=== PATIENT | female | born 1960 | race Caucasian/White ===

== ENCOUNTER 2016-08-31 09:05 | Emergency (ER) | payer BC ==
[2016-08-31 09:27] VITALS: BP 155/69
[2016-08-31] MEDS ORDERED: BSS OPTH.SOL* BTL ONE (09:29)
[2016-08-31] MEDS ORDERED: Tetracaine 0.5% OPTH.SOL 4 ML* 1 DROP BTL ONE (09:29)
[2016-08-31] MEDS ORDERED: Fluorescein Sodium TOPICAL* 1 MG TEST ONE (09:29)
--- NOTE | 2016-08-31 09:52 | UC ---
Eye Complaint HPI - HPI Summary HPI Summary: left eye redness and irritation since 08/26/16. Does not wear contacts. [place] like something got in it. Works at a convenience store, sees alot of people. States she has also had a URI since 08/26/16, but states it seems to be getting better. Can see with her glasses. Has clear drainage. - History of Current Complaint Chief Complaint: UCEye Stated Complaint: EYE COMPLAINT Time Seen by Provider: 08/31/16 09:45 Hx Obtained From: Patient Hx Last Menstrual Period: 1 yr Onset/Duration: Gradual Onset, Lasting Days, Still Present Timing: Constant Severity Initially: Moderate Severity Currently: Moderate Pain Intensity: 3 Pain Scale Used: 0-10 Numeric Location of Injury: Conjunctiva, Eye Lid (upper) - swollen Character: Foreign Body Sensation Aggravating Factor(s): Light Alleviating Factor(s): Eye Drops - tried Visine and clear view Associated Signs And Symptoms: Positive: Photophobia, Drainage (Clear) Related History: Meds/Drops Used: - visine, clear view - Risk Factors Acute Glaucoma Risk Factors: Negative Optic Artery Occlusion Risk Factors: Negative - Allergies/Home Medications Allergies/Adverse Reactions: Allergies Allergy/AdvReac Type Severity Reaction Status Date / Time Sea air Allergy Congestion Uncoded 08/31/16 09:16 Home Medications: Home Medications Saxagliptin HCl [Onglyza] 5 mg PO DAILY 08/31/16 [History Confirmed 08/31/16] PMH/Surg Hx/FS Hx/Imm Hx Endocrine History Of: Reports: Diabetes Cardiovascular History Of: Reports: Cardiac Disorders - [place] 1993 angina, Hypertension - Surgical History Surgical History: Yes Surgery Procedure, Year, and Place: appy 1971; right elbow surgery-2002 - Family History Known Family History: Positive: Hypertension - Social History Occupation: Employed Full-time Alcohol Use: None Substance Use Type: None Smoking Status (MU): Former Smoker Household Exposure Type: Cigarettes Review of Systems Constitutional: Negative Eyes: Drainage, Eye Redness ENT: Nasal Discharge, Other - sinus pressure All Other Systems Reviewed And Are Negative: Yes Physical Exam Triage Information Reviewed: Yes Appearance: Well-Appearing, Pain Distress, Obese Vital Signs: Initial Vital Signs Temp 97.3 F 08/31/16 09:19 Pulse 52 08/31/16 09:19 Resp 14 08/31/16 09:19 BP 155/69 08/31/16 09:19 Pulse Ox 100 08/31/16 09:19 elevated BP and bradycardia noted Vital Signs Reviewed: Yes Eyes: Positive: Conjunctiva Inflamed, Discharge - clear, Other: - upper lid swollen, No FB when lid everted. No stye ENT: Positive: Pharynx normal, TMs normal. Negative: Muffled/hoarse voice Neck: Positive: Supple, Nontender Respiratory: Positive: Lungs clear, Normal breath sounds, No respiratory distress, No accessory muscle use Cardiovascular: Positive: RRR, No Murmur, Pulses Normal, Brisk Capillary Refill Musculoskeletal: Positive: Strength Intact, ROM Intact Neurological: Positive: Alert, Muscle Tone Normal Psychological Exam: Normal Skin Exam: Normal Procedures - Eye Procedure Alcaine Drops Administered: Yes - 2 gtts, left eye Eye FB Removal: other - NO FB noted Eye Irrigated w/ Saline (ccs): 10 - 1mm corneal abrasion at 6:00 position, no FB Eye Complaint Course/Dx - Course Course Of Treatment: VA noted - Differential Dx/Diagnosis Differential Diagnosis/HQI/PQRI: Conjunctivitis, Corneal Abrasion, Foreign Body Provider Diagnoses: 1) Corneal abrasion. 2) BP in poor control. 3) bradycardia Discharge - Discharge Plan Condition: Stable Disposition: HOME Prescriptions: Tobramycin 0.3% OPHTH.DAVID* 2 drop LEFT EYE Q4H #1 btl Patient Education Materials: Corneal Abrasion (ED) Referrals: Geronimo Sage MD [Primary Care Provider] - 7 Days (regarding your elevated BP today. )
== END 2016-08-31 10:30 | disposition home or self-care (01) ==
LOC: UCCORT 09:05
DX: S05.02XA Injury of conjunctiva and corneal abrasion without foreign body, left eye, initial encounter (principal); R00.1 Bradycardia, unspecified; X58.XXXA Exposure to other specified factors, initial encounter; E11.9 Type 2 diabetes mellitus without complications; I10 Essential (primary) hypertension; I25.2 Old myocardial infarction; Z87.891 Personal history of nicotine dependence; E66.9 Obesity, unspecified; Z68.39 Body mass index [BMI] 39.0-39.9, adult
CPT/HCPCS: 99212; A9270-GY; G0463

== ENCOUNTER 2016-11-15 16:45 | Emergency (ER) | payer BC ==
[2016-11-15 16:55] VITALS: BP 126/82
--- NOTE | 2016-11-15 17:03 | UC ---
Throat Pain/Nasal Rios HPI - HPI Summary HPI Summary: complaint of nasal congestion and cough that started approx 7 days ago coughing is worse at night, sometimes she hears wheezing coughing fits that make her feel like she is going to vomit intermittent fever sore throat for the first few days denies headaches, ear pain , N/V/D woke up several days ago with purulent drainage in her left eye feels itchy denies vision changes and eye pain - History of Current Complaint Chief Complaint: UCRespiratory Stated Complaint: COUGH Time Seen by Provider: 11/15/16 16:55 Hx Obtained From: Patient Hx Last Menstrual Period: 1 yr - Allergies/Home Medications Allergies/Adverse Reactions: Allergies Allergy/AdvReac Type Severity Reaction Status Date / Time Sea air AdvReac Congestion Uncoded 11/15/16 16:55 PMH/Surg Hx/FS Hx/Imm Hx Previously Healthy: Yes Endocrine History: Diabetes, Dyslipidemia Cardiovascular History: Myocardial Infarction Respiratory History: Asthma GI/ History: Gastroesophageal Reflux - Surgical History Surgical History: Yes Surgery Procedure, Year, and Place: appy 1971; right elbow surgery-2002 - Family History Known Family History: Positive: Hypertension Negative: Cardiac Disease, Diabetes - Social History Occupation: Employed Full-time Lives: With Family Alcohol Use: None Substance Use Type: None Smoking Status (MU): Former Smoker Household Exposure Type: Cigarettes Review of Systems Constitutional: Fever, Chills Skin: Negative Eyes: Drainage, Eye Redness ENT: Nasal Discharge Respiratory: Cough Cardiovascular: Negative Gastrointestinal: Negative Genitourinary: Negative Motor: Negative Neurovascular: Negative Musculoskeletal: Negative Neurological: Negative Psychological: Negative All Other Systems Reviewed And Are Negative: Yes Physical Exam Triage Information Reviewed: Yes Appearance: No Pain Distress, Well-Nourished Vital Signs: Initial Vital Signs Temp 98.5 F 11/15/16 16:49 Pulse 56 11/15/16 16:49 Resp 18 11/15/16 16:49 BP 126/82 11/15/16 16:49 Pulse Ox 100 11/15/16 16:49 Vital Signs Reviewed: Yes Eyes: Positive: Conjunctiva Inflamed - left, Discharge - left ENT: Positive: Pharyngeal erythema, Nasal congestion, TMs normal. Negative: TM bulging, TM red, Tonsillar swelling, Tonsillar exudate Neck: Positive: No Lymphadenopathy Respiratory: Positive: Normal breath sounds, No respiratory distress, No accessory muscle use, Wheezing - in upper ramos Cardiovascular: Positive: RRR, No Murmur, Pulses Normal, Brisk Capillary Refill Abdomen Description: Positive: Nontender, Soft Bowel Sounds: Positive: Present Musculoskeletal: Positive: No Edema Neurological: Positive: Alert Psychological Exam: Normal Skin Exam: Normal Throat Pain/Nasal Course/Dx - Course Course Of Treatment: exam completed. asthma exacerbation from viral illness. will rx for predniosne to help reduce inflammation continue albuterol as needed. conjunctivitis- will treat with eryhtromycin - Differential Dx/Diagnosis Differential Diagnosis/HQI/PQRI: URI, Other - bronchitis, asthma exacerbation, conjuncitivits Provider Diagnoses: left conjunctivitis. asthma exacerbation - viral illness Discharge - Discharge Plan Condition: Stable Disposition: HOME Prescriptions: Albuterol HFA INHALER* [Ventolin HFA Inhaler*] 2 puff INH Q4H PRN #1 mdi PRN Reason: Cough Benzonatate CAP* [Tessalon 100 MG CAP*] 100 mg PO TID #30 cap Erythromycin OPTH OINT* 1 applic LEFT EYE TID #1 ophth.oint predniSONE TAB* [Deltasone TAB*] 50 mg PO DAILY #5 tab Patient Education Materials: Asthma (ED), Conjunctivitis (ED) Referrals: Geronimo Sage MD [Medical Doctor] - Additional Instructions: Please start antibiotic ointment in left eye as directed Start prednisone as directed and continue to check your blood sugar which will be more elevated while on prednisone Use your inhaler as needed for uncontrolled cough or wheezing, take tessalon perles to control coughing Increase fluids and rest Take acetaminophen or ibuprofen for fever or pain Please review your discharge instructions. If your symptoms do not improve please call your primary care provider or return to urgent care. Your blood pressure is pre-hypertensive reading. Please contact your primary care provider within 1 day -4 weeks for further evaluation
== END 2016-11-15 17:25 | disposition home or self-care (01) ==
LOC: UCCORT 16:45
DX: H10.9 Unspecified conjunctivitis (principal); J45.901 Unspecified asthma with (acute) exacerbation; B34.9 Viral infection, unspecified; Z87.891 Personal history of nicotine dependence; E11.9 Type 2 diabetes mellitus without complications; E78.5 Hyperlipidemia, unspecified; K21.9 Gastro-esophageal reflux disease without esophagitis
CPT/HCPCS: 99212; G0463

== ENCOUNTER 2017-01-16 16:40 | Emergency (ER) | payer BC ==
[2017-01-16] MEDS ORDERED: Aspirin Low Dose CHEW TAB* 81 MG PO ONE (16:57)
[2017-01-16] MEDS ORDERED: NS 0.9% 1000 ML* 1,000 ML IV ONE (17:22)
--- NOTE | 2017-01-16 17:53 | RAD ---
INDICATION: Chest pain COMPARISON: None. TECHNIQUE: Single AP portable view of the chest was obtained. FINDINGS: Image quality is compromised due to the relative inferiority of a portable chest x-ray. The heart and mediastinum exhibit normal size and contour. The lungs are grossly clear. There is no evidence of a large pleural effusion. Visualized bones are normal for the patient's age. IMPRESSION: No radiographic evidence for acute cardiopulmonary abnormality on this portable chest x-ray.
[2017-01-16 17:55] LABS: Hematocrit 40 % (35-47); Hemoglobin 13.3 g/dl (12.0-16.0); Mean Corpuscular HGB Conc 33 g/dl (31-36); Mean Corpuscular Hemoglobin 31 pg (27-31); Mean Corpuscular Volume 96 fL (80-97); Mean Platelet Volume 9 um3 (7.4-10.4); Red Blood Count 4.23 10^6/ul (4.0-5.4); Red Cell Distribution Width 13 % (10.5-15); White Blood Count 6.5 10^3/ul (3.5-10.8)
[2017-01-16 18:05] LABS: Add Diff/Slide Review? Slide Review Added; Comments Flag Yes
[2017-01-16 18:10] LABS: ALT 16 U/L (7-52); Alkaline Phosphatase 46 U/L (34-104); BUN/Creatinine Ratio 17.1 (8-20); Blood Urea Nitrogen 12 mg/dL (6-24); CO2 Carbon Dioxide 25 mmol/L (22-32); Calcium 8.9 mg/dL (8.6-10.3); Chloride 102 mmol/L (101-111); EGFR African American 111.3 (>60); EGFR Non-African American 86.6 (>60); Globulin 3.2 g/dL (2-4); Glucose 189 mg/dL (70-100); Sodium 134 mmol/L (133-145); Total Protein 7.2 g/dL (6.4-8.9)
[2017-01-16 18:11] LABS: Troponin I 0.01 ng/mL (<0.04)
[2017-01-16 18:30] LABS: Anion Gap 7 mmol/L (2-11)
[2017-01-16] MEDS ORDERED: Iodixanol* (CONTRAST) 320 MG/ML 100 ML SDV IV ONE (18:39)
[2017-01-16] MEDS ORDERED: Morphine INJ* 4 MG/ML 1 ML SYRINGE IV ONE (20:09)
--- NOTE | 2017-01-16 20:21 | RAD ---
STUDY: CT angiography of the chest, abdomen and pelvis. INDICATION: Chest pain. Relevant surgical history includes appendectomy. COMPARISON: None. TECHNIQUE: Multidetector CT angiography of the chest, abdomen and pelvis were obtained from the lung apices to the ischial tuberosities after the intravenous injection of 100 mL Omnipaque 300. Reformats were created in the coronal and sagittal planes. 3-D vascular imaging was created from the source images and reviewed as well. ANGIOGRAPHIC FINDINGS: There is no aneurysmal dilatation or dissection involving the thoracic aorta. There is calcified atherosclerosis at the major branch vessels off of the arch most severely affecting the subclavian artery, but patency appears to be maintained. More inferiorly the abdominal aorta exhibits increasing calcified atherosclerosis above the bifurcation that extends into the bilateral common iliac arteries. In-line flow is maintained as far as the proximal superficial femoral arteries. Incidentally noted is reflux of intravenously injected contrast into the hepatic veins. NON ANGIOGRAPHIC FINDINGS: Chest: There are faint diffuse groundglass patchy densities throughout both of the lungs. There is no focal lobar consolidation. There are no large pleural effusions. There is no mediastinal or hilar lymphadenopathy. The heart is grossly normal in appearance. Abdomen \T\ Pelvis: The liver, spleen, pancreas and adrenal glands are grossly normal in appearance. The gallbladder is normal. The left kidney is normal in appearance without focal mass, calcification or signs of hydronephrosis. The renal cortices enhance promptly and symmetrically on arterial phase imaging. At the superior pole of the right kidney (axial image 144 and coronal image 54) there is a 1.6 cm hyperattenuating focus. Evaluation of the gastrointestinal tract is limited without oral contrast. The small and large bowel are not distended. The appendix is nonvisualized consistent with the patient's reported surgical history.. There is no gross retroperitoneal or mesenteric lymphadenopathy. The pelvic viscera is normal in appearance. Multilevel degenerative changes of the thoracic and lumbar spine include loss of intervertebral disc height.There are no sinister bone lesions. IMPRESSION: 1. No aortic aneurysm or dissection. 2. Incidentally noted is intravenously contrast refluxing into the hepatic veins. This can sometimes be seen in the setting of congestive heart failure and/or right heart insufficiency. 3. There are faint diffuse patchy groundglass densities in the lungs. Such an appearance could be the consequence of congestive heart failure. Alternative diagnoses include infectious or inflammatory etiologies. Please correlate to the patient's respiratory examination. 4. At the superior pole of the right kidney there is a hyperattenuating 1.6 cm nodule. Further characterization can be made with nonemergent ultrasound or contrast-enhanced MRI of the kidneys as a neoplastic etiology is not excluded on this imaging alone.
--- NOTE | 2017-01-16 21:05 | ED ---
Tamika Del Valle Rebecca, scribed for Perlita Sheehan MD on 01/16/17 at 1720 . HPI Chest Pain - HPI Summary HPI Summary: Pt is a 56 y/o F who presents to ED c/o back pain with intermittent radiation to the midsternum region of the chest. 1 week ago, pt began experiencing intermittent spasms in the middle of the upper back with an accompanied pressure with radiation to the chest. Currently, chest pain is mild ranked 1/10 and is not worse than it had been previously. Sx aggravated by exertion, alleviated by nothing, unchanged by deep breaths. Recent increase in stress. No recent travel. PMHx DM, HTN and [place] which was "on the outside of the heart." FHx CAD (diffuse). No recent stress test, though she reports have an echocardiogram. Is not on any blood thinners besides ASA. - History of Current Complaint Chief Complaint: EDChestPainROMI Time Seen by Provider: 01/16/17 16:57 Hx Obtained From: Patient Hx Last Menstrual Period: 1 yr Onset/Duration: Started Weeks Ago - 1 week, Still Present Timing: Intermittent Current Severity: Mild Pain Intensity: 1 Pain Scale Used: 0-10 Numeric Chest Pain Location: Mid Sternal Chest Pain Radiates: Yes Chest Pain Radiates To:: Back Character: Pressure/Squeezing Aggravating Factor(s): Exertion Alleviating Factor(s): Nothing Associated Signs and Symptoms: Positive: Negative - Allergy/Home Medications Allergies/Adverse Reactions: Allergies Allergy/AdvReac Type Severity Reaction Status Date / Time Sea air AdvReac Congestion Uncoded 11/15/16 16:55 PMH/Surg Hx/FS Hx/Imm Hx Endocrine/Hematology History: Reports: Hx Diabetes - type 2 Cardiovascular History: Reports: Hx Hypertension, Hx Myocardial Infarction - Surgical History Surgery Procedure, Year, and Place: appy 1971; right elbow surgery-2002 - Immunization History Date of Tetanus Vaccine: UNKNOWN Date of Influenza Vaccine: UTD Infectious Disease History: No Infectious Disease History: Denies: Traveled Outside the [place] in Last 30 Days - Family History Known Family History: Positive: Cardiac Disease, Hypertension Negative: Diabetes - Social History Alcohol Use: Rare Substance Use Type: Reports: None Smoking Status (MU): Former Smoker Review of Systems Negative: Fever Positive: Chest Pain - Back pain with radiation to the chest All Other Systems Reviewed And Are Negative: Yes Physical Exam - Summary Physical Exam Summary: General: Well appearing, no pain distress Skin: Warm, Skin Color Reflects Adequate Perfusion, Dry Eyes: EOMI, PRIYA ENT: Pharynx normal, TMs normal Neck: Supple, nontender Respiratory: CTA, breath sounds present, no rhonchi, no wheezes, no rales Cardiovascular: RRR, no murmur, no rub, no gallop Abdomen: Soft, nontender, Non-distended, no guarding, no rebound Bowel: Present Musculoskeletal: ALISHA, No edema, Tender through T3-T4 Neuro: Sensory/motor intact, A&Ox3, CN intact 2-12 Psych: Affect/mood appropriate Triage Information Reviewed: Yes Vital Signs On Initial Exam: Initial Vitals Temp Pulse Resp BP Pulse Ox 97.9 F 70 20 166/82 96 01/16/17 16:57 01/16/17 16:57 01/16/17 16:57 01/16/17 16:57 01/16/17 16:57 Vital Signs Reviewed: Yes - [place] Coma Scale Coma Scale Total: 15 Diagnostics - Vital Signs Vital Signs Temp Pulse Resp BP Pulse Ox 01/16/17 17:09 96 01/16/17 16:57 97.9 F 71 20 166/82 96 - Laboratory Lab Results: Lab Results 01/16/17 01/16/17 01/16/17 Range/Units 17:40 17:40 17:40 WBC 6.5 (3.5-10.8) 10^3/ul RBC 4.23 (4.0-5.4) 10^6/ul Hgb 13.3 (12.0-16.0) g/dl Hct 40 (35-47) % MCV 96 (80-97) fL MCH 31 (27-31) pg MCHC 33 (31-36) g/dl RDW 13 (10.5-15) % Plt Count 274 (150-450) 10^3/ul MPV 9 (7.4-10.4) um3 Neut % (Auto) 66.6 (38-83) % Lymph % (Auto) 26.5 (25-47) % [place] % (Auto) 4.5 (1-9) % Eos % (Auto) 1.3 (0-6) % Baso % (Auto) 1.1 (0-2) % Absolute Neuts (auto) 4.4 (1.5-7.7) 10^3/ul Absolute Lymphs (auto) 1.7 (1.0-4.8) 10^3/ul Absolute Monos (auto) 0.3 (0-0.8) 10^3/ul Absolute Eos (auto) 0.1 (0-0.6) 10^3/ul Absolute Basos (auto) 0.1 (0-0.2) 10^3/ul Absolute Nucleated RBC 0.01 10^3/ul Nucleated RBC % 0.1 Sodium 134 (133-145) mmol/L Potassium TNP Chloride 102 (101-111) mmol/L Carbon Dioxide 25 (22-32) mmol/L Anion Gap 7 (2-11) mmol/L BUN 12 (6-24) mg/dL Creatinine 0.70 (0.51-0.95) mg/dL Est GFR ( Amer) 111.3 (>60) Est GFR (Non-Af Amer) 86.6 (>60) BUN/Creatinine Ratio 17.1 (8-20) Glucose 189 H (70-100) mg/dL Lactic Acid 1.8 (0.5-2.0) mmol/L Calcium 8.9 (8.6-10.3) mg/dL Total Bilirubin 0.70 (0.2-1.0) mg/dL AST TNP ALT 16 (7-52) U/L Alkaline Phosphatase 46 (34-104) U/L Troponin I 0.01 (<0.04) ng/mL Total Protein 7.2 (6.4-8.9) g/dL Albumin 4.0 (3.2-5.2) g/dL Globulin 3.2 (2-4) g/dL Albumin/Globulin Ratio 1.3 (1-3) 01/16/17 Range/Units 18:44 WBC (3.5-10.8) 10^3/ul RBC (4.0-5.4) 10^6/ul Hgb (12.0-16.0) g/dl Hct (35-47) % MCV (80-97) fL MCH (27-31) pg MCHC (31-36) g/dl RDW (10.5-15) % Plt Count (150-450) 10^3/ul MPV (7.4-10.4) um3 Neut % (Auto) (38-83) % Lymph % (Auto) (25-47) % [place] % (Auto) (1-9) % Eos % (Auto) (0-6) % Baso % (Auto) (0-2) % Absolute Neuts (auto) (1.5-7.7) 10^3/ul Absolute Lymphs (auto) (1.0-4.8) 10^3/ul Absolute Monos (auto) (0-0.8) 10^3/ul Absolute Eos (auto) (0-0.6) 10^3/ul Absolute Basos (auto) (0-0.2) 10^3/ul Absolute Nucleated RBC 10^3/ul Nucleated RBC % Sodium (133-145) mmol/L Potassium 3.5 Chloride (101-111) mmol/L Carbon Dioxide (22-32) mmol/L Anion Gap (2-11) mmol/L BUN (6-24) mg/dL Creatinine (0.51-0.95) mg/dL Est GFR ( Amer) (>60) Est GFR (Non-Af Amer) (>60) BUN/Creatinine Ratio (8-20) Glucose (70-100) mg/dL Lactic Acid (0.5-2.0) mmol/L Calcium (8.6-10.3) mg/dL Total Bilirubin (0.2-1.0) mg/dL AST 14 ALT (7-52) U/L Alkaline Phosphatase (34-104) U/L Troponin I (<0.04) ng/mL Total Protein (6.4-8.9) g/dL Albumin (3.2-5.2) g/dL Globulin (2-4) g/dL Albumin/Globulin Ratio (1-3) Result Diagrams: 01/16/17 17:40 01/16/17 18:44 Lab Statement: Any lab studies that have been ordered have been reviewed, and results considered in the medical decision making process. - Radiology CXR Xray Interpretation: No Acute Changes - No radiographic evidence for acute cardiopulmonary abnormality on this portable chest x-ray. Radiology Interpretation Completed By: Radiologist - CT CTA Chest/Abd/Pel CT Interpretation Completed By: Radiologist - 1. No aortic aneurysm or dissection. 2. Incidentally noted is intravenously contrast refluxing into the hepatic veins. This can sometimes be seen in the setting of congestive heart failure and/or right heart insufficiency. 3. There are faint diffuse patchy groundglass densities in the lungs. Such an appearance could be the consequence of congestive heart failure. Alternative diagnoses include infectious or inflammatory etiologies. Please correlate to the patient's respiratory examination. 4. At the superior pole of the right kidney there is a hyperattenuating 1.6 cm nodule. Further characterization can be made with nonemergent ultrasound or contrast-enhanced MRI of the kidneys as a neoplastic etiology is not excluded on this imaging alone. - EKG 2043 Cardiac Rate: NL - 79 bpm EKG Rhythm: Sinus Rhythm EKG Interpretation: No ST elevation Re-Evaluation - Re-Evaluation First Eval Re-Evaluation Time: 20:50 Comment: Discussed results and requested pain medication. Chest Pain Course/Dx - Course Assessment/Plan: Elevated BP noted and advised to f/u with PCP. several discussions with this 56 yo female with hx of [place] with back pain radiating to chest for 1 week. Pain is constant in nature, cta of chest,abd,pelvis neg for PE or dissection pt with neg trop. long discussion with pt about staying for an obv but pt wants to go home pt understands risks - Diagnoses Provider Diagnoses: Chest pain, Back pain Discharge - Discharge Plan Condition: Stable Disposition: HOME Prescriptions: HYDROcodone/ACETAMIN 5-325 MG* [[place] 5-325 TAB*] 1 tab PO Q8H PRN #14 tab MDD 3 PRN Reason: Pain Patient Education Materials: Chest Pain (ED), Back Pain (ED) Referrals: Durga Aguayo MD [Primary Care Provider] - 3 Days The documentation as recorded by the Tamika cih Rebecca accurately reflects the service I personally performed and the decisions made by me, Perlita Sheehan MD.
[2017-01-16 21:41] VITALS: BP 184/80
== END 2017-01-16 21:45 | disposition home or self-care (01) ==
LOC: ED 16:40
DX: R07.9 Chest pain, unspecified (principal); M54.9 Dorsalgia, unspecified; Z87.891 Personal history of nicotine dependence
CPT/HCPCS: 36415; 71010; 71275; 74174; 80053; 83605; 84484; 85025; 93005; 99284; J2270; Q9967

== ENCOUNTER 2017-06-17 11:17 | Emergency (ER) | payer BC ==
[2017-06-17 11:45] VITALS: BP 101/46
--- NOTE | 2017-06-17 12:37 | UC ---
Respiratory Complaint HPI - HPI Summary HPI Summary: Cough and congestion for 4-5 days. She is worried that this will turn into bronchitis. She has had congestion as well and loss of appetite. Yesterday she ate very little. Today she had breakfast alone. 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 She stretched her back which made it feel better but then had lightheadedness and she had to sit. She did not get palpitations, jaw pain, chest pain, scapular pain. She had a BM and felt better. she is followed by Dr. Chavis cardiology. She is compliant with her meds. She has hx of [place] and angina but this is different and she did not have any of her prior cardiac related symptoms. - History of Current Complaint Chief Complaint: UCGeneralIllness Stated Complaint: COUGH DIZZY SWEATS Time Seen by Provider: 06/17/17 11:47 Hx Obtained From: Patient Hx Last Menstrual Period: 1 yr Onset/Duration: Lasting Minutes Severity Currently: None Character: Cough: Nonproductive Aggravating Factors: Deep Breaths, Recumbent Position Alleviating Factors: OTC Meds Associated Signs And Symptoms: Positive: Fever, Chills, URI, Nasal Congestion. Negative: Hemoptysis, Calf Pain, Calf Swelling - Allergies/Home Medications Allergies/Adverse Reactions: Allergies Allergy/AdvReac Type Severity Reaction Status Date / Time Sea air AdvReac Congestion Uncoded 06/17/17 11:30 Home Medications: Home Medications Aspirin TAB* [Aspirin 325 MG TAB*] 650 mg PO Q6H PRN 06/17/17 [History Confirmed 06/17/17] Naproxen TAB* [Naprosyn 250 mg TAB*] 500 mg PO Q8H PRN 06/17/17 [History Confirmed 06/17/17] PMH/Surg Hx/FS Hx/Imm Hx Previously Healthy: No - Cardiac disease. DM. - Surgical History Surgical History: Yes Surgery Procedure, Year, and Place: appy 1971; right elbow surgery-2002 - Family History Known Family History: Positive: Cardiac Disease, Hypertension Negative: Diabetes - Social History Alcohol Use: Rare Substance Use Type: None Smoking Status (MU): Former Smoker Household Exposure Type: Cigarettes - Immunization History Most Recent Influenza Vaccination: NOT IN 2017 Review of Systems ENT: Sore Throat, Sinus Congestion Respiratory: Cough Neurological: Weakness - near syncope. All Other Systems Reviewed And Are Negative: Yes Physical Exam Triage Information Reviewed: Yes Appearance: Well-Appearing, No Pain Distress, Well-Nourished Vital Signs: Initial Vital Signs Temp 98.9 F 06/17/17 11:34 Pulse 51 06/17/17 11:34 Resp 20 06/17/17 11:34 BP 101/46 06/17/17 11:34 Pulse Ox 100 06/17/17 11:34 Vital Signs Reviewed: Yes Eyes: Positive: Conjunctiva Clear ENT: Positive: Pharyngeal erythema, Nasal congestion, TMs normal, Uvula midline. Negative: Nasal drainage, Tonsillar swelling, Tonsillar exudate, Trismus, Muffled voice, Sinus tenderness Neck: Positive: Supple, Nontender, No Lymphadenopathy Respiratory: Positive: Lungs clear, Normal breath sounds, No respiratory distress, No accessory muscle use. Negative: Respiratory distress, Decreased breath sounds, Accessory muscle use, Crackles, Rhonchi, Stridor Cardiovascular: Positive: No Murmur, Pulses Normal, Brisk Capillary Refill. Negative: Tachycardia Abdomen Description: Positive: No Organomegaly, Soft. Negative: Distended, Guarding Musculoskeletal: Positive: Strength Intact, ROM Intact, No Edema Neurological: Positive: Alert, Muscle Tone Normal, Fatigued Psychological: Positive: Normal Response To Family, Age Appropriate Behavior Skin: Negative: rashes UC Diagnostic Evaluation - Laboratory O2 Sat by Pulse Oximetry: 100 Respiratory Course/Dx - Course Course Of Treatment: She has had uri, viral illness and signs of flu. She is day 5 into her symptoms and likely will not be helped by tamiflu if this is the flu. She will try cough medications and z pack to be filled if not better in another 3-5 days. She had near syncope when she changed positions and stretched backwards "because I was hunched over the mon register and needed to stretch." She had no cardiac ischemic equivalents. EKG is essentially unchanged except for ST flattening in lateral leads which is non specefic. She does agree to call 911 for any new symptoms or worsening symptoms and these were reviewed in detail. - Differential Dx/Diagnosis Provider Diagnoses: near syncope. URI. viral illness. Discharge - Discharge Plan Condition: Good Disposition: HOME Prescriptions: Azithromyxin RASHEED (NF) [Z-Rasheed (Zithromax) 250 mg tabs #6] 2 tab PO .TODAY, THEN 1 DAILY #6 tab Benzonatate [TESSALON 200 MG CAP] 200 mg PO TID #30 cap GuaiFENesin DM sugar free* [Robitussin DM sugar free*] 10 ml PO TID #200 [place] Patient Education Materials: Upper Respiratory Infection (ED) Referrals: Durga Augayo MD [Primary Care Provider] - If Needed Additional Instructions: Go to ED if symptoms worsen in any way or if you get new symptoms of any kind.
== END 2017-06-17 12:35 | disposition home or self-care (01) ==
LOC: UCCORT 11:17
DX: R55 Syncope and collapse (principal); J06.9 Acute upper respiratory infection, unspecified; B34.9 Viral infection, unspecified; R00.1 Bradycardia, unspecified; E11.9 Type 2 diabetes mellitus without complications; I51.9 Heart disease, unspecified; Z79.82 Long term (current) use of aspirin; Z87.891 Personal history of nicotine dependence
CPT/HCPCS: 93005; 99212; G0463

== ENCOUNTER 2018-06-22 11:37 | Emergency (ER) | payer BC ==
[2018-06-22 11:57] VITALS: BP 127/59
--- NOTE | 2018-06-22 12:35 | UC ---
UC General HPI - HPI Summary HPI Summary: day 4 of being ill with cough, congestion and sob with severe coughing. also some nausea and dry heaves. no fever, cp or diarrhea. 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 Hx Last Menstrual Period: 1 yr Onset/Duration: Gradual Onset Timing: Constant Pain Intensity: 5 Associated Signs & Symptoms: Negative: Abdominal Pain, Diarrhea, Dysuria, Fever - Allergy/Home Medications Allergies/Adverse Reactions: Allergies Allergy/AdvReac Type Severity Reaction Status Date / Time Sea air AdvReac Congestion Uncoded 08/07/17 07:58 Home Medications: Home Medications Ibuprofen 600 mg PO Q12H 06/22/18 [History Confirmed 06/22/18] Nitroglycerin 0.4 mg PO Q12H PRN 06/22/18 [History Confirmed 06/22/18] PMH/Surg Hx/FS Hx/Imm Hx - Additional Past Medical History Additional PMH: "non aggressive R renal CA" Endocrine History: Diabetes Cardiovascular History: Cardiac Disease Respiratory History: Bronchitis - Surgical History Surgical History: Yes Surgery Procedure, Year, and Place: appy 1971; right elbow surgery-2002 - Family History Known Family History: Positive: Cardiac Disease, Hypertension Negative: Diabetes - Social History Lives: With Family Alcohol Use: None Substance Use Type: None Smoking Status (MU): Former Smoker Household Exposure Type: Cigarettes - Immunization History Most Recent Influenza Vaccination: NOT IN 2017 Vaccination Up to Date: Yes Review of Systems All Other Systems Reviewed And Are Negative: Yes Constitutional: Positive: Negative Skin: Positive: Negative Eyes: Positive: Negative ENT: Positive: Negative Respiratory: Positive: Shortness Of Breath, Cough Cardiovascular: Positive: Negative Gastrointestinal: Positive: Vomiting, Nausea Genitourinary: Positive: Negative Motor: Positive: Negative Neurovascular: Positive: Negative Musculoskeletal: Positive: Negative Neurological: Positive: Negative Psychological: Positive: Negative Physical Exam Triage Information Reviewed: Yes Appearance: Well-Appearing Vital Signs: Initial Vital Signs Temp 99.7 F 06/22/18 11:49 Pulse 68 06/22/18 11:49 Resp 19 06/22/18 11:49 BP 127/59 06/22/18 11:49 Pulse Ox 98 06/22/18 11:49 Vital Signs Reviewed: Yes Eyes: Positive: Conjunctiva Clear ENT: Positive: Pharynx normal, TMs normal. Negative: Nasal congestion, Nasal drainage Neck: Positive: Supple, Nontender, No Lymphadenopathy Respiratory: Positive: No respiratory distress, Decreased breath sounds, Other: - Frtequent bronchospatic-congested cough. Cardiovascular: Positive: RRR, No Murmur Abdomen Description: Positive: Nontender, No Organomegaly, Soft. Negative: Distended, Guarding Bowel Sounds: Positive: Present Musculoskeletal: Positive: ROM Intact Neurological: Positive: Alert Psychological: Positive: Age Appropriate Behavior Skin Exam: Normal Skin: Negative: Rashes Diagnostics - Radiology No standard instances Radiology Interpretation Completed By: Radiologist - IMPRESSION: LOW LUNG VOLUMES, SMALL BIBASILAR INFILTRATES SUGGESTIVE OF ATELECTASIS LESS LIKELY PNEUMONIA. Re-Evaluation - Re-Evaluation First Eval Re-Evaluation Time: 13:13 Change: Improved - LESS COUGH, IMPROVED AERATION. OCCASIONAL WHEEZES R. Course/Dx - Differential Dx - Multi-Symptom Differential Diagnoses: Other - PNEUMONIA, BRONCHITIS, VIRAL SYNDROM. - Diagnoses Provider Diagnosis: Pneumonia Discharge - Sign-Out/Discharge Documenting (check all that apply): Patient Departure All imaging exams completed and their final reports reviewed: Yes - Discharge Plan Condition: Stable Disposition: HOME Prescriptions: Albuterol HFA INHALER* [Ventolin HFA Inhaler*] 2 puff INH Q6H #1 mdi DOXYcycline CAP(*) [DOXYcycline 100MG CAP(*)] 100 mg PO BID 10 Days #20 cap Patient Education Materials: Community Acquired Pneumonia (DC) Forms: *Work Release Referrals: Durga Aguayo MD [Primary Care Provider] - 7 Days - Billing Disposition and Condition Condition: STABLE Disposition: Home
[2018-06-22] MEDS ORDERED: Albuterol 2.5 MG/3 ML NEB.SOL* (0.083%) INH ONE (12:38)
== END 2018-06-22 13:24 | disposition home or self-care (01) ==
LOC: UCCORT 11:37
DX: J18.9 Pneumonia, unspecified organism (principal); C64.1 Malignant neoplasm of right kidney, except renal pelvis; Z87.891 Personal history of nicotine dependence
CPT/HCPCS: 71046; 99212; G0463